=== PATIENT | female | born 1945 | race Two or more races ===

== ENCOUNTER 2023-10-16 10:01 | Emergency (ER) | payer OTHER ==
[~2023-10-16] VITALS: Ht 154.9 cm; Wt 81.6 kg
[2023-10-16] MEDS ORDERED: AVAPRO75 MG PO (10:17)
[2023-10-16] MEDS ORDERED: LIPITOR20 MG PO (10:17)
== END 2023-10-16 12:12 | disposition home or self-care (01) ==
LOC: ER 10:03
DX: I10 Essential (primary) hypertension (principal); R00.2 Palpitations